=== PATIENT | female | born 1970 | race Caucasian/White ===

== ENCOUNTER 2018-03-27 06:53 | Emergency (ER) | payer SELFPAY ==
[~2018-03-27] VITALS: Ht 172.7 cm; Wt 113.4 kg
[2018-03-27 07:09] VITALS: BP 120/62
--- NOTE | 2018-03-27 07:21 | PHYS DOC ---
Past Medical History Past Medical History: No Pertinent History Past Surgical History: No Surgical History Alcohol Use: None Drug Use: None Adult General Chief Complaint Chief Complaint: LOWER EXTREMITY SWELLING HPI HPI Patient is a 48-year-old female, who is unfortunately homeless. She states she has been in [place] for about 6 months, after arriving from [place], after reportedly being kicked off an [employer] train while [place] to get to [place]. The patient presented to the emergency department yesterday via EMS, apparently seeking resources to be connected with a homeless skilled nursing. The patient was released yesterday evening, but due to cold wet weather, was allowed to remain in the emergency department waiting room overnight. The outgoing shift supervisor melting charge nurse did report that the ER racing secretary overnight called homeless shelters in the areas, but they refused to allow the patient to return, secondary to prior violations of their policies. The shelters did state that she would be able to return to this facility Wednesday morning, after speaking with an records administrator, if she were to agree to abide by the facility's rules. The patient check back in this morning, because she states that when she is not able to lay down for long periods of time she developed some dependent edema. She states that this is not a new problem. She denies any other medical complaints at this time. She does not have any shortness of breath or chest pain. She denies any prior medical history and is on no medications. Review of Systems Review of Systems Constitutional: Denies fever or chills [] Eyes: Denies change in visual acuity, redness, or eye pain [] HENT: Denies nasal congestion or sore throat [] Respiratory: Denies cough or shortness of breath [] Cardiovascular: The patient denies any shortness of breath, chest pain, palpitations, or orthopnea [] GI: Denies abdominal pain, nausea, vomiting, bloody stools or diarrhea [] : Denies dysuria or hematuria [] Musculoskeletal: Denies back pain or joint pain [] Integument: Denies rash or skin lesions [] Neurologic: Denies headache, focal weakness or sensory changes [] Endocrine: Denies polyuria or polydipsia [] All other systems were reviewed and found to be within normal limits, except as documented in this note. Allergies Allergies Allergies Coded Allergies Type Severity Reaction Last Updated Verified No Known Drug Allergies 03/26/18 No Physical Exam Physical Exam PHYSICAL EXAM: CONSTITUTIONAL: Well developed, well nourished HEAD: normocephalic, atraumatic EENT: PERRL, EOMI. Conjunctivae normal color, sclerae non-icteric; moist mucous membranes. NECK: Supple, non-tender; no meningismus. LUNGS: Lungs CTA, breathing even and unlabored. Normal air movement. HEART: Regular rate and rhythm, no murmur CHEST: No deformity; non-tender ABDOMEN: The abdomen is soft, and non-tender, no masses or bruits. EXTREM: Normal ROM; no deformity, no calf tenderness. Normal pulses palpable in all extremities. There is trace bilateral nonpitting pedal edema. SKIN: No rash; no diaphoresis NEURO: Alert; normal speech and cognition; CN's grossly intact; strength grossly intact without focal deficit. BACK: No CVA TTP. EKG EKG [] Radiology/Procedures Radiology/Procedures [] Course & Med Decision Making Course & Med Decision Making The patient will be given all of all her available resources for homelessness shelters in the area, she has no medical complaints or issue at this time. She does not have any family in the area unfortunately. There is no social services coordinator in the hospital on the weekends, I have been told. Dragon Disclaimer Dragon Disclaimer This electronic medical record was generated, in whole or in part, using a voice recognition dictation system. Departure Departure Impression: Primary Impression: Homeless single person Additional Impression: Dependent edema Disposition: HOME, SELF-CARE Condition: STABLE Referrals: NO PCP (PCP) Patient Instructions: Peripheral Edema Problem Qualifiers PENNY GRADY MD Mar 27, 2018 07:21
== END 2018-03-27 07:27 | disposition home or self-care (01) ==
LOC: ER 06:53
DX: R60.0 Localized edema (principal); Z59.0 Homelessness
CPT/HCPCS: 99281